=== PATIENT | female | born 1960 | race Caucasian/White ===

== ENCOUNTER 2016-05-30 12:41 | Emergency (ER) | payer OTHER ==
[2016-05-30 13:24] VITALS: BP 135/62; PULSE 78; RESP 18; TEMP 99; O2SAT 93
--- NOTE | 2016-05-30 14:21 | UCPHY ---
H & P Time Seen by Provider: 05/30/16 13:56 Patient Type: Established HPI/ROS: HPI Flu-like symptoms for 3 weeks. 56-year-old female by private vehicle. This patient reports she has had flu- like symptoms including sore throat, cough, headaches, nausea, muscle aches and joint aches ongoing for the last 1 week. She reports that she thought she had an appointment with her primary care physician and went to the office for that appointment but after waiting in the waiting room for an hour was told that she was was scheduled told to come here for evaluation. She complains of continued cough and shortness of breath associated with that cough. ROS: Constitutional: As above. Eyes: No discharge. No changes in vision. ENT: As above. Respiratory: As above. Cardiac: No chest pain, no palpitations. Gastrointestinal: As above, no vomiting, no diarrhea. Genitourinary: No hematuria. No dysuria or increased frequency with urination. Musculoskeletal: As above Skin: No rashes. Neurological: As above. No focal weakness or altered sensation. Past medical history: Hereditary angioedema, rheumatoid arthritis, tubal ligation. She is on methotrexate and a biologic agent for her rheumatoid arthritis. Social history: Here by herself. Nonsmoker. Physical Exam: General Appearance: Alert, no distress. This patient is responding to questions appropriately and in full sentences. This patient appears well- hydrated and well-nourished. Eyes: Pupils equal and round no pallor or injection. No lid edema, erythema or injection. ENT, Mouth: Mucous membranes are moist. The pharyngeal tissues are unremarkable. No edema or swelling. No asymmetry suggestive of abscess. No erythema or exudates. No stridor on auscultation of her neck. Mild cervical lymphadenopathy. No submandibular or submental lymphadenopathy. Respiratory: There are no retractions, scant wheezing on exhalation bilaterally with decreased air movement. No tachypnea.. Cardiovascular: Regular rate and rhythm. No murmur. Gastrointestinal: Abdomen is soft and nontender, no masses, bowel sounds normal. No focal tenderness at McBurney's point. No Morrow sign. Neurological: Motor sensory function is grossly intact. Cranial nerves are normal. Gait is normal. Skin: Warm and dry, no rashes. Musculoskeletal: Neck is supple and nontender. Extremities are symmetrical. All joints range without pain or impingement. Psychiatric: No agitation. No depression. Database: Rapid flu-positive for flu A. EKG: Imaging: Chest x-ray PA and lateral; the cardiac mediastinal silhouette is unremarkable. No evidence of infiltrate or pneumothorax. Diffuse airway disease, mild bronchitis. No acute cardiopulmonary disease process noted. Interpreted by me. Procedures: Emergency department course: From triage she was sent for a chest x-ray. Rapid flu obtained in triage as well and was positive for influenza A. Vital signs were reviewed. Pulse oximetry on room air 93%. Temperature 37.3degrees. Vital signs otherwise unremarkable. She currently is not on any immune suppression for her rheumatoid arthritis. After my evaluation, I discussed treatment options with her. She is declining any pain medications including NSAIDs and narcotic a cm and a fan combinations. Although she is symptomatic for 1 week she is on immunosuppressive medication for her rheumatoid arthritis. I will treat her with Tamiflu. She was given 75 mg orally. She will also be given a albuterol/Atrovent nebulizer treatment. 3:00 p.m., patient re-evaluated. She feels better after her albuterol/Atrovent nebulizer treatment. Repeat pulmonary exam no further wheezing. Good air movement bilaterally. No tachypnea. Results of her chest x-ray were discussed with her. She does have Proventil at home. She feels comfortable going home and I feel she is safe for discharge. She will be prescribed Tamiflu. Follow- up and return to Urgent Care precautions reviewed. All of her questions were answered. She was discharged in good condition. Differential Diagnosis: The differential diagnosis on this patient includes but is not limited to influenza, viral syndrome, viral pneumonitis. This represents a partial list of diagnoses considered. These considerations are based on history, physical exam, past history, reassessment and diagnostic testing. Smoking Status: Never smoked Constitutional: Initial Vital Signs Temperature (C) 37.2 C 05/30/16 13:22 Heart Rate 78 05/30/16 13:22 Respiratory Rate 18 05/30/16 13:22 Blood Pressure 135/62 H 05/30/16 13:22 O2 Sat (%) 93 05/30/16 13:22 O2 Delivery Mode Room Air Allergies/Adverse Reactions: ragweed pollen Allergy (Severe, Verified 10/30/14 08:12) codeine [Codeine] Allergy (Mild, Verified 07/30/15 08:12) hydrocodone [Hydrocodone] Allergy (Mild, Verified 10/30/14 08:12) ragweed Allergy (Uncoded 10/30/14 08:12) Home Medications: Medication Instructions Recorded Methotrexate Sodium/Pf 20 mg SC SA@09 12/06/12 [Methotrexate 25 mg/ml Vial] Acet/Caffeine/Buta Fioricet 1 each PO Q4-6PRN PRN 12/25/12 [Fioricet (*)] Folic Acid [Folic Acid 1 MG (*)] 1 mg PO BID 12/25/12 Fexofenadine HCl [Lisette Allergy] 60 mg PO DAILY PRN 07/07/14 Ondansetron Odt [Zofran Odt 4 mg 4 mg PO Q4 PRN 07/07/14 (*)] Ranitidine HCl [Zantac] 150 mg PO BIDMEAL 07/07/14 Albuterol [Proventil Inhaler HFA 2 puffs IH Q4 PRN #1 mdi 07/08/14 (*)] EPINEPHrine [Epipen] 0.3 mg IM ONCE #2 syr 07/08/14 Herbals/Supplements -Info Only 1 ea PO DAILY 10/30/14 EPINEPHrine [Epipen 0.3 MG] 0.3 mg IM ONCE PRN #2 syr 10/31/14 Methylprednisolone [Medrol] 32 mg PO BID PRN #10 tablet 10/31/14 Oseltamivir Phosphate [Tamiflu 75 75 mg PO BID #10 cap 05/30/16 mg (RX)] Medical Decision Making - Data Points Laboratory Results: 05/30/16 13:10 Influenza Typ A,B (DFA) POSITIVE FOR FLU A H (NEGATIVE) Medications Given: Discontinued Medications Albuterol/Ipratropium (Duoneb) 3 ml IH EDNOW ONE Stop: 05/30/16 14:35 Last Admin: 05/30/16 14:55 Dose: 3 ml Oseltamivir Phosphate (Tamiflu) 75 mg PO EDNOW ONE Stop: 05/30/16 14:35 Last Admin: 05/30/16 14:56 Dose: 75 mg Departure - Departure Disposition: Home, Routine, Self-Care Clinical Impression: Influenza A Condition: Good Instructions: Influenza (ED) Additional Instructions: Read and follow provided instructions. Follow-up with your primary care physician in 1-2 days for re-evaluation. Take Tamiflu medication as prescribed through entire course of treatment. Albuterol meter dose inhaler: 1-2 puffs every 2-4 hours as needed for cough and shortness of breath. Ibuprofen dosin mg every 6 hours with meals for the next 3 days only. Chase/Percocet dosin-2 every 4-6 hours for pain[address] Do not drive on this medication. Return to the emergency department for worsening symptoms, difficulty breathing , high fever or other serious concerns. Referrals: Gabriella Chung MD [Primary Care Provider] - As per Instructions Prescriptions: Oseltamivir Phosphate [Tamiflu 75 mg (RX)] 75 mg PO BID #10 cap - PQRS PQRS Measurement: Not applicable.
[2016-05-30] MEDS ORDERED: OSELTAMIVIR PHOSPHATE 75 MG CAP PO ONE (14:34)
[2016-05-30] MEDS ORDERED: IPRATROPIUM/ALBUTEROL 3 ML DEYVIAL IH ONE (14:34)
== END 2016-05-30 15:17 | disposition home or self-care (01) ==
LOC: CED 12:41
DX: J10.1 Influenza due to other identified influenza virus with other respiratory manifestations (principal); M06.9 Rheumatoid arthritis, unspecified
CPT/HCPCS: 71020-PO; 87400-PO; 99214-PO; G0463-PO

== ENCOUNTER 2017-12-20 08:08 | Emergency (ER) | payer OTHER ==
[2017-12-20] MEDS ORDERED: methylPREDNISolone SOD SUCC 125 MG/2 ML VIAL IVP ONE (08:48)
--- NOTE | 2017-12-20 08:52 | EDPHY ---
H & P Time Seen by Provider: 12/20/17 08:20 HPI/ROS: Chief complaint. Sore throat, mouth swelling HPI. Patient is a 57-year-old female with history of hereditary angioedema. She also has rheumatoid arthritis on methotrexate. The patient had a root canal December 06. She is concerned that she has an infection but is not on antibiotics. She saw her dentist yesterday because she had sores on her tongue and lower lip. She was prescribed Magic mouthwash but the formulation was not clear last evening by the pharmacy so it was clarified by the dentist and the Magic mouthwash will be ready for her today. She has had sores on her lower lip for several days. Sore throat since yesterday. No exposure to anyone with strep or infectious disease. She says she has never had strep. She feels her symptoms are worse because of increased stress. Her mom past 2 months ago and she is handling her mother's affairs. She feels she has some swelling to her cheeks. She says off and on low-grade fever. Frequent nausea secondary to stress. No chest discomfort or trouble breathing. No cough. No abdominal pain. Chronic rash on her left elbow and left lower extremity over the past 2 months that again she relates to stress. She has had similar symptoms previously and has had to use epinephrine, Benadryl, Solu-Medrol. She feels that Prednisone really does not help her. She feels that she needs Solu-Medrol to help stop the swelling. ROS 10 systems were reviewed and negative with the exception of the elements mentioned in the history of present illness Past Medical/Surgical History: Heriditary angioedema, rheumatoid arthritis on methotrexate, bilateral tubal ligation Social History: , nonsmoker, no alcohol Smoking Status: Never smoked Physical Exam: General Appearance: Alert pleasant well-developed female mild distress vital signs are stable. Temp 37.3 degrees Eyes: Pupils equal and round no pallor or injection. ENT, tympanic membranes are normal. Pharynx is injected without exudate. She has lakeisha this ulcer lesions on the tip of her tongue and the left lower lip with mild swelling. No significant pharyngeal swelling. She has no stridor. She speaks in full sentences. She is swallowing secretions Respiratory: There are no retractions, lungs are clear to auscultation. Cardiovascular: Regular rate and rhythm. Gastrointestinal: Abdomen is soft and nontender, no masses, bowel sounds normal. Neurological: Awake and alert, sensory and motor exams grossly normal. Skin: Warm and dry, no rashes. Musculoskeletal: Neck is supple nontender. Extremities symmetrical, full range of motion. Psychiatric: Patient is oriented X 3, there is no agitation. Constitutional: Initial Vital Signs Temperature (C) 37.3 C 12/20/17 08:15 Heart Rate 91 12/20/17 08:15 Respiratory Rate 18 12/20/17 08:15 Blood Pressure 146/100 H 12/20/17 08:15 O2 Sat (%) 95 12/20/17 08:15 O2 Delivery Mode Room Air Allergies/Adverse Reactions: ragweed pollen Allergy (Severe, Verified 10/30/14 08:12) codeine [Codeine] Allergy (Mild, Verified 10/30/14 08:12) hydrocodone [Hydrocodone] Allergy (Mild, Verified 10/30/14 08:12) ragweed Allergy (Uncoded 10/30/14 08:12) Home Medications: Medication Instructions Recorded Methotrexate Sodium/Pf 20 mg PO SA@09 12/06/12 [Methotrexate 25 mg/ml Vial] Acet/Caffeine/Buta Fioricet 1 each PO Q4-6PRN PRN 12/25/12 [Fioricet (*)] Folic Acid [Folic Acid 1 MG (*)] 1 mg PO BID 12/25/12 Fexofenadine HCl [Lisette Allergy] 60 mg PO DAILY PRN 07/07/14 Ondansetron Odt [Zofran Odt 4 mg 4 mg PO Q4 PRN 07/07/14 (*)] Ranitidine HCl [Zantac] 150 mg PO BIDMEAL 07/07/14 Albuterol [Proventil Inhaler HFA 2 puffs IH Q4 PRN #1 mdi 07/08/14 (*)] EPINEPHrine [Epipen] 0.3 mg IM ONCE #2 syr 07/08/14 Herbals/Supplements -Info Only 1 ea PO DAILY 10/30/14 EPINEPHrine [Epipen 0.3 MG] 0.3 mg IM ONCE PRN #2 syr 10/31/14 methylPREDNISolone [Medrol] 32 mg PO BID PRN #10 tablet 10/31/14 Effexor Xr 12/20/17 FLUoxetine 12/20/17 Hydroxychloroquine Sulfate 12/20/17 Hyoscyamine Sulfate 12/20/17 Verapamil 12/20/17 chlordiazePOXIDE HCL 12/20/17 Medical Decision Making Procedures: IV normal saline. Solu-Medrol IV ED Course/Re-evaluation: Re-evaluation at 9:30 a.m.. Patient is stable. She is talking in full sentences. There is no stridor. No drooling. She tells me now she has a typical migraine headache and would like narcotics for this. Explained as an institution we do not treat migraines with narcotics primarily. She is offered Reglan and Benadryl for her headache. She agrees Re-evaluation 9:55 a.m.. Patient is stable. She and I discussed treatment plan including criteria for return importance of follow-up and further evaluation especially with dentist and oral surgeon for concern about postoperative root canal infection. She expresses understanding and agreement Differential Diagnosis: This appears to be viral infection in the patient's mouth. She has evidence of aphthous ulcers. This appears not to be associated with strep throat. Patient is concerned about swelling and her hereditary angioedema. There is no significant evidence for significant edema at this point. She has been treated with Solu-Medrol. She feels that Prednisone does not help. Patient has typical migraine headache. She asked for narcotics. She has been given Reglan and Benadryl. She is neurologically intact - Data Points Medications Given: Discontinued Medications Diphenhydramine HCl (Benadryl Injection) 12.5 mg IVP EDNOW ONE Stop: 12/20/17 09:34 Last Admin: 12/20/17 09:39 Dose: 12.5 mg Methylprednisolone Sodium Succinate (Solu-Medrol) 125 mg IVP EDNOW ONE Stop: 12/20/17 08:49 Last Admin: 12/20/17 09:06 Dose: 125 mg Metoclopramide HCl (Reglan Injection) 5 mg IVP EDNOW ONE Stop: 12/20/17 09:34 Last Admin: 12/20/17 09:42 Dose: 5 mg Departure - Departure Disposition: Home, Routine, Self-Care Clinical Impression: Aphthous stomatitis Condition: Good Instructions: Pharyngitis (ED) 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 Follow-up with your oral surgeon for further evaluation of possible infection after your root canal Referrals: Gabriella Chung MD [Primary Care Provider] - 2-3 days, if not improved
[2017-12-20] MEDS ORDERED: ACET/CAFFEINE/BUTA FIORICET 1 EACH TAB PO ONE (09:11)
[2017-12-20] MEDS ORDERED: METOCLOPRAMIDE 10 MG/2 ML VIAL IVP ONE (09:33)
[2017-12-20 09:47] VITALS: BP 128/80
== END 2017-12-20 10:23 | disposition home or self-care (01) ==
LOC: CED 08:08
DX: K12.0 Recurrent oral aphthae (principal); M06.9 Rheumatoid arthritis, unspecified
CPT/HCPCS: 96374; J1200; J2765; J2930